=== PATIENT | female | born 1935 | race Caucasian/White ===

== ENCOUNTER → 2022-04-03 | Outpatient (CLI) | payer MEDICARE, OTHER | LOC: US 12:01 | PROVIDERS: ATTEND Family Medicine | DX: L89.322 Pressure ulcer of left buttock, stage 2 (principal) | CPT/HCPCS: 76882 ==

== ENCOUNTER → 2022-04-06 | Outpatient (RCR) | payer MEDICARE, OTHER ==
[~2022-04-06] MED LIST: CEFTRIAXONE 1 GM VIAL ONE; COLLAGENASE OINTMENT 30 GM TUBE ONE; LIDOCAINE HCL 1% LOCAL INJ 20 ML VIAL ONE; LIDOCAINE VISC 2% SOLN 15 ML UDC ONE; MUPIROCIN 2% OINT 22 GM TUBE ONE
== END ==
LOC: WCC 03-28 09:10
PROVIDERS: ATTEND Family Medicine
DX: L89.320 Pressure ulcer of left buttock, unstageable (principal); L89.890 Pressure ulcer of other site, unstageable; I87.2 Venous insufficiency (chronic) (peripheral); J44.9 Chronic obstructive pulmonary disease, unspecified; M13.80 Other specified arthritis, unspecified site; R26.9 Unspecified abnormalities of gait and mobility
CPT/HCPCS: 11042 ×2; 87071; 87075; 87186; 87205; 96372 ×2; 97602; 99203; 99213; J0696; J2001

== ENCOUNTER 2022-05-04 11:53 | Outpatient (RCR) | payer MEDICARE, OTHER ==
[~2022-05-04 11:53] MED LIST changes: -CEFTRIAXONE 1 GM VIAL ONE; -COLLAGENASE OINTMENT 30 GM TUBE ONE; -LIDOCAINE HCL 1% LOCAL INJ 20 ML VIAL ONE; -MUPIROCIN 2% OINT 22 GM TUBE ONE
== END 2022-05-07 ==
LOC: WCC 11:53
PROVIDERS: ATTEND Family Medicine
DX: L89.320 Pressure ulcer of left buttock, unstageable (principal); L89.890 Pressure ulcer of other site, unstageable; I87.2 Venous insufficiency (chronic) (peripheral); B96.89 Other specified bacterial agents as the cause of diseases classified elsewhere; J44.9 Chronic obstructive pulmonary disease, unspecified; M13.80 Other specified arthritis, unspecified site; R26.9 Unspecified abnormalities of gait and mobility

== ENCOUNTER → 2022-06-06 | Outpatient (RCR) | payer MEDICARE, OTHER ==
[2022-05-18 15:01] LABS: BASOPHILS # (AUTO) 0.1 (0.0-0.1); BASOPHILS % 0.9 % (0.0-1.0); EOSINOPHILS # (AUTO) 0.2 (0.0-0.4); EOSINOPHILS % 1.3 % (0.0-6.0); HEMATOCRIT 37.5 % (34.2-44.1); HEMOGLOBIN 11.9 g/dL (12.0-16.0); LYMPHOCYTES # (AUTO) 2.6 (1.0-3.2); MEAN CORPUSCULAR HEMOGLOBIN 31.9 pg (28-32); MEAN CORPUSCULAR HGB CONC 31.7 g/dL (31-35); MEAN CORPUSCULAR VOLUME 100.5 fL (81-99); MONOCYTES # (AUTO) 1.7 (0.2-0.8); MONOCYTES % 14.8 % (4.4-11.3); NEUTROPHILS # (AUTO) 6.8 (2.1-6.9); NEUTROPHILS % 59.6 % (38.7-80.0); PLATELET COUNT 259 x10e3/uL (140-360); RED BLOOD COUNT 3.73 x10e6/uL (3.6-5.1); RED CELL DISTRIBUTION WIDTH 14.1 % (11.7-14.4)
[2022-05-18 15:22] LABS: ALBUMIN 3.9 g/dL (3.5-5.0); ALBUMIN/GLOBULIN RATIO 1.4 (0.8-2.0); ANION GAP 12.8 mmol/L (8-16); CALCIUM 9.7 mg/dL (8.4-10.2); CREATININE, SERUM 0.75 mg/dL (0.57-1.11); POTASSIUM 3.8 mmol/L (3.5-5.1)
[~2022-06-06] MED LIST changes: +LIDOCAINE/PRILOCAINE 2.5-2.5% KIT ONE; +TRIAMCINOLONE ACET 0.1% CREAM 15 GM TUBE ONE
== END ==
LOC: WCC 05-09 14:58
PROVIDERS: ATTEND Family Medicine
DX: L89.323 Pressure ulcer of left buttock, stage 3 (principal); L89.893 Pressure ulcer of other site, stage 3; I87.2 Venous insufficiency (chronic) (peripheral); J44.9 Chronic obstructive pulmonary disease, unspecified; M13.80 Other specified arthritis, unspecified site; B96.89 Other specified bacterial agents as the cause of diseases classified elsewhere; R26.9 Unspecified abnormalities of gait and mobility
CPT/HCPCS: 11042 ×3; 15271 ×2; 36415; 80053; 84134; 85025; 87071; 87075; 87205; 97605 ×6; 99213 ×3; Q4133 ×2

== ENCOUNTER 2022-08-02 14:12 | Outpatient (RCR) | payer MEDICARE, OTHER | END 2022-08-07 | LOC: WCC 14:12 | PROVIDERS: ATTEND Family Medicine Adult Medicine | DX: L89.323 Pressure ulcer of left buttock, stage 3 (principal); L89.893 Pressure ulcer of other site, stage 3; I87.2 Venous insufficiency (chronic) (peripheral); J44.9 Chronic obstructive pulmonary disease, unspecified; M13.80 Other specified arthritis, unspecified site; R26.9 Unspecified abnormalities of gait and mobility ==

== ENCOUNTER 2022-08-29 11:28 | Outpatient (RCR) | payer MEDICARE, OTHER ==
[~2022-08-29 11:28] MED LIST changes: +MUPIROCIN 2% OINT 22 GM TUBE ONE; +TRYPSIN/BALSAM PERU/CASTOR OIL ONE
[2022-08-29] MEDS ORDERED: LIDOCAINE VISC 2% SOLN 15 ML UDC ONE (11:56)
== END 2022-09-04 ==
LOC: WCC 11:28
PROVIDERS: ATTEND Family Medicine Adult Medicine
DX: L89.323 Pressure ulcer of left buttock, stage 3 (principal); L89.893 Pressure ulcer of other site, stage 3; I87.2 Venous insufficiency (chronic) (peripheral); J44.9 Chronic obstructive pulmonary disease, unspecified; M13.80 Other specified arthritis, unspecified site; R26.9 Unspecified abnormalities of gait and mobility

== ENCOUNTER 2024-09-24 14:03 | Outpatient (RCR) | payer MEDICARE, OTHER ==
[~2024-09-24 14:03] MED LIST changes: +COLLAGENASE OINTMENT 30 GM TUBE ONE; -LIDOCAINE VISC 2% SOLN 15 ML UDC ONE; -LIDOCAINE/PRILOCAINE 2.5-2.5% KIT ONE; -TRIAMCINOLONE ACET 0.1% CREAM 15 GM TUBE ONE; -TRYPSIN/BALSAM PERU/CASTOR OIL ONE
[2024-09-25] MEDS ORDERED: LIDOCAINE/PRILOCAINE 2.5-2.5% KIT ONE (10:15)
== END 2024-10-05 ==
LOC: WCC 14:03
PROVIDERS: ATTEND Internal Medicine Infectious Disease
DX: S51.802D Unspecified open wound of left forearm, subsequent encounter (principal)

== ENCOUNTER 2024-10-29 15:00 | Outpatient (RCR) | payer MEDICARE, OTHER ==
[~2024-10-29 15:00] MED LIST changes: -COLLAGENASE OINTMENT 30 GM TUBE ONE; +LIDOCAINE VISC 2% SOLN 15 ML UDC ONE; -MUPIROCIN 2% OINT 22 GM TUBE ONE
== END 2024-11-04 ==
LOC: WCC 15:00
PROVIDERS: ATTEND Internal Medicine Infectious Disease
DX: S51.802D Unspecified open wound of left forearm, subsequent encounter (principal)